=== PATIENT | male | born 1955 | race Caucasian/White ===

== ENCOUNTER 2016-06-06 09:38 | Emergency (ER) | payer OTHER ==
[2016-06-06] MEDS ORDERED: SODIUM CHLORIDE 0.9% 2,000 ML IV STA (09:41)
--- NOTE | 2016-06-06 09:47 | ED ---
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 He was seen in his family doctor today was noted have a heart rate between 141 45 bpm. EKG was done showing possible flutter. He was transported here by EMS. He was given a fluid challenge his heart rate did respond. His normal blood pressures around 100/60 per EMS his initial one was 102/62. He had come up somewhat after the fluid challenge. Patient denies any headache dizziness blurry vision he has had nausea no vomiting he feels generally rundown and weak. No focal weakness however. No known heart or lung disease. He states multiple family members including his son and a brother has similar symptoms. He's had no foreign travel no recent antibiotics. MD Complaint: irregular heart beat - Related Data Home Medications Medication Instructions Recorded Confirmed Aspirin 81 mg PO DAILY 06/06/16 06/06/16 Cholecalciferol [Vitamin D3] 2,000 unit PO DAILY 06/06/16 06/06/16 Multivitamin [Men's Multi-Vitamin] 1 tab PO DAILY 06/06/16 06/06/16 Olmesartan/Hydrochlorothiazide 1 tab PO DAILY 06/06/16 06/06/16 [Benicar Hct 40-12.5 mg Tablet] Previous Rx's Medication Instructions Recorded Oseltamivir [Tamiflu] 75 mg PO Q12HR #10 cap 06/06/16 Allergies Allergy/AdvReac Type Severity Reaction Status Date / Time No Known Allergies Allergy Verified 06/06/16 13:32 Review of Systems ROS Statement: Those systems with pertinent positive or pertinent negative responses have been documented in the HPI. ROS Other: All systems not noted in ROS Statement are negative. General Exam - General Exam Comments Initial Comments: This is a well-developed asthenic appearing male awake alert oriented 3 General appearance: alert, in no apparent distress Head exam: Present: atraumatic, normocephalic, normal inspection Eye exam: Present: normal appearance, PERRL, EOMI. Absent: scleral icterus, conjunctival injection, periorbital swelling ENT exam: Present: mucous membranes dry Neck exam: Present: normal inspection. Absent: tenderness, meningismus, lymphadenopathy Respiratory exam: Present: normal lung sounds bilaterally. Absent: respiratory distress, wheezes, rales, rhonchi, stridor Cardiovascular Exam: Present: tachycardia, irregular rhythm. Absent: systolic murmur, diastolic murmur, rubs, gallop, clicks GI/Abdominal exam: Present: soft, normal bowel sounds. Absent: distended, tenderness, guarding, rebound, rigid Extremities exam: Present: normal inspection, full ROM, normal capillary refill. Absent: tenderness, pedal edema, joint swelling, calf tenderness Back exam: Present: normal inspection Neurological exam: Present: alert, oriented X3, CN II-XII intact Psychiatric exam: Present: normal affect, normal mood Skin exam: Present: warm, dry, intact, normal color. Absent: rash Course Vital Signs 06/06/16 06/06/16 06/06/16 09:55 10:00 12:31 Temperature 99.8 F H Pulse Rate 132 H 138 H 60 Respiratory 18 18 18 Rate Blood Pressure 136/81 106/68 O2 Sat by Pulse 95 100 Oximetry - Reevaluation(s) Reevaluation #1: 06/06/16 12:39 The patient was reevaluated he is feeling much improved he did originally going to his doctor's office for evaluation of upper respiratory infection with been going on for about 4 days. He's had rhinorrhea nasal congestion slight cough. Flu swab is been ordered. Reevaluation #2: 06/06/16 14:18 The patient did respond to IV fluids and is feeling improved at this time. The initial EKG was suspicious for atrial flutter rate 131 QRS of 80 QT/QTC of 274/ 404. Repeat EKG showed a sinus rhythm of 64 TN interval 164 QRS of 80 QT/QTC of 380/400 Medical Decision Making - Medical Decision Making The patient did have a positive influenza test type a I did a long discussion with him and his family regarding his he'll be discharged on Tamiflu he will be given a note for work. The initial rhythm strip the patient came in with appeared to be consistent with PACs. This is since resolved. Also - Lab Data Result diagrams: 06/06/16 09:50 06/06/16 09:50 Lab Results 06/06/16 06/06/16 06/06/16 Range/Units 09:50 09:50 09:50 WBC 6.1 (3.8-10.6) k/uL RBC 4.65 (4.30-5.90) m/uL Hgb 14.7 (13.0-17.5) gm/dL Hct 42.3 (39.0-53.0) % MCV 90.9 (80.0-100.0) fL MCH 31.5 (25.0-35.0) pg MCHC 34.7 (31.0-37.0) g/dL RDW 12.8 (11.5-15.5) % Plt Count 124 L (150-450) k/uL Neutrophils % 80 % Lymphocytes % 11 % Monocytes % 6 % Eosinophils % 0 % Basophils % 0 % Neutrophils # 4.9 (1.3-7.7) k/uL Lymphocytes # 0.7 L (1.0-4.8) k/uL Monocytes # 0.4 (0-1.0) k/uL Eosinophils # 0.0 (0-0.7) k/uL Basophils # 0.0 (0-0.2) k/uL Sodium 142 (137-145) mmol/L Potassium 4.5 (3.5-5.1) mmol/L Chloride 107 (98-107) mmol/L Carbon Dioxide 25 (22-30) mmol/L Anion Gap 10 mmol/L BUN 18 (9-20) mg/dL Creatinine 0.81 (0.66-1.25) mg/dL Est GFR (MDRD) Af Amer >60 (>60 ml/min/1.73 sqM) Est GFR (MDRD) Non-Af >60 (>60 ml/min/1.73 sqM) Glucose 97 (74-99) mg/dL Calcium 9.1 (8.4-10.2) mg/dL Magnesium 2.2 (1.6-2.3) mg/dL Total Bilirubin 1.3 (0.2-1.3) mg/dL AST 32 (17-59) U/L ALT 38 (21-72) U/L Alkaline Phosphatase 68 (38-126) U/L Total Creatine Kinase 74 (55-170) U/L CK-MB (CK-2) <0.2 (0.0-2.4) ng/mL CK-MB (CK-2) Rel Index Troponin I <0.012 (0.000-0.034) ng/mL Total Protein 6.0 L (6.3-8.2) g/dL Albumin 3.4 L (3.5-5.0) g/dL Amylase 38 (30-110) U/L Lipase 58 (23-300) U/L Influenza Type A RNA (Not Detectd) Influenza Type B (PCR) (Not Detectd) 06/06/16 Range/Units 13:17 WBC (3.8-10.6) k/uL RBC (4.30-5.90) m/uL Hgb (13.0-17.5) gm/dL Hct (39.0-53.0) % MCV (80.0-100.0) fL MCH (25.0-35.0) pg MCHC (31.0-37.0) g/dL RDW (11.5-15.5) % Plt Count (150-450) k/uL Neutrophils % % Lymphocytes % % Monocytes % % Eosinophils % % Basophils % % Neutrophils # (1.3-7.7) k/uL Lymphocytes # (1.0-4.8) k/uL Monocytes # (0-1.0) k/uL Eosinophils # (0-0.7) k/uL Basophils # (0-0.2) k/uL Sodium (137-145) mmol/L Potassium (3.5-5.1) mmol/L Chloride (98-107) mmol/L Carbon Dioxide (22-30) mmol/L Anion Gap mmol/L BUN (9-20) mg/dL Creatinine (0.66-1.25) mg/dL Est GFR (MDRD) Af Amer (>60 ml/min/1.73 sqM) Est GFR (MDRD) Non-Af (>60 ml/min/1.73 sqM) Glucose (74-99) mg/dL Calcium (8.4-10.2) mg/dL Magnesium (1.6-2.3) mg/dL Total Bilirubin (0.2-1.3) mg/dL AST (17-59) U/L ALT (21-72) U/L Alkaline Phosphatase (38-126) U/L Total Creatine Kinase (55-170) U/L CK-MB (CK-2) (0.0-2.4) ng/mL CK-MB (CK-2) Rel Index Troponin I (0.000-0.034) ng/mL Total Protein (6.3-8.2) g/dL Albumin (3.5-5.0) g/dL Amylase (30-110) U/L Lipase (23-300) U/L Influenza Type A RNA Detected H (Not Detectd) Influenza Type B (PCR) Not Detected (Not Detectd) - Radiology Data Radiology results: report reviewed (Nonspecific x-rays), image reviewed Disposition Clinical Impression: Influenza A, Dehydration, Cardiac dysrhythmia, unspecified, Febrile illness, acute Disposition: HOME SELF-CARE Condition: Good Instructions: Palpitations (ED), Influenza (ED), Dehydration (ED), Fever in Adults (ED) Prescriptions: Oseltamivir [Tamiflu] 75 mg PO Q12HR #10 cap
[2016-06-06 10:00] VITALS: RESP 18
[2016-06-06 10:07] LABS: Basophils % (A) 0 %; CH 31.3; CHCM 34.6; Eosinophils % (A) 0 %; HCT 42.3 % (39.0-53.0); HGB 14.7 gm/dL (13.0-17.5); Luc # (Auto) 0.18; Luc % (Auto) 3; Lymphocytes # (A) 0.7 k/uL (1.0-4.8); Lymphocytes % (A) 11 %; MCH 31.5 pg (25.0-35.0); MCHC 34.7 g/dL (31.0-37.0); MCV 90.9 fL (80.0-100.0); Monocytes # (A) 0.4 k/uL (0-1.0); Monocytes % (A) 6 %; Neutrophils # (A) 4.9 k/uL (1.3-7.7); Neutrophils % (A) 80 %; RBC 4.65 m/uL (4.30-5.90); RDW 12.8 % (11.5-15.5); WBC 6.1 k/uL (3.8-10.6); WBC (Perox) 6.08
[2016-06-06 10:17] LABS: ALT 38 U/L (21-72); AST 32 U/L (17-59); Alkaline Phosphatase 68 U/L (38-126); Amylase 38 U/L (30-110); Anion Gap 10 mmol/L; Blood Urea Nitrogen 18 mg/dL (9-20); Calcium 9.1 mg/dL (8.4-10.2); Carbon Dioxide 25 mmol/L (22-30); Chloride 107 mmol/L (98-107); Glucose 97 mg/dL (74-99); Magnesium 2.2 mg/dL (1.6-2.3); Non-African American GFR(MDRD) >60 (>60 ml/min/1.73 sqM); Potassium 4.5 mmol/L (3.5-5.1); Sodium 142 mmol/L (137-145); Total Bilirubin 1.3 mg/dL (0.2-1.3)
--- NOTE | 2016-06-06 10:25 | XR ---
EXAMINATION TYPE: XR chest 2V DATE OF EXAM: 06/06/2016 10:16 AM COMPARISON: NONE TECHNIQUE: PA and lateral views submitted. HISTORY: Cough FINDINGS: The lungs are clear and there is no pneumothorax, pleural effusion, or focal pneumonia. Hyperinflat ion suggests COPD. Biapical pleural thickening noted. IMPRESSION: 1. No acute process. Correlate for COPD.
--- NOTE | 2016-06-06 10:27 | XR ---
EXAMINATION TYPE: XR KUB DATE OF EXAM: 06/06/2016 10:16 AM COMPARISON: NONE HISTORY: Abdominal pain and cough TECHNIQUE: One view abdominal series FINDINGS: The osseous structures are intact. The bowel gas pattern is nonspecific. Nonspecific calcifications in the pelvis likely vascular. Lung bases clear. Linear opaque density left upper abdomen may be vasc ular or related to previous procedure. Correlate clinically. IMPRESSION: 1. Nonspecific abdomen.
[2016-06-06 10:33] LABS: Creatine Kinase 74 U/L (55-170)
[2016-06-06 10:46] LABS: Creatine Kinase MB <0.2 ng/mL (0.0-2.4); Troponin I <0.012 ng/mL (0.000-0.034)
[2016-06-06] MEDS ORDERED: OSELTAMIVIR 75 MG CAP PO STA (14:13)
[2016-06-06 14:46] VITALS: BP 117/68; PULSE 64; TEMP 98.9
== END 2016-06-06 14:46 | disposition home or self-care (01) ==
LOC: EC 09:38
DX: J10.1 Influenza due to other identified influenza virus with other respiratory manifestations (principal); E86.0 Dehydration; I49.9 Cardiac arrhythmia, unspecified; Z79.82 Long term (current) use of aspirin; Z79.899 Other long term (current) drug therapy
CPT/HCPCS: 36415; 71020; 74000; 80053; 82150; 82550; 82553; 83690; 83735; 84484; 85025; 87502; 93005; 96360; 96361; 99285

== ENCOUNTER → 2016-07-03 | Outpatient (CLI) | payer OTHER ==
--- NOTE | 2016-07-04 09:41 | ECHOF ---
Referral Reason:I42.2 other hypertrophic MEASUREMENTS -------- HEIGHT: 182.9 cm WEIGHT: 68.0 kg BP: RVIDd: 2.8 cm (< 3.3) IVSd: 0.8 cm (0.6 - 1.1) LVIDd: 4.5 cm (3.9 - 5.3) LVPWd: 0.9 cm (0.6 - 1.1) IVSs: 1.5 cm LVIDs: 2.1 cm LVPWs: 1.2 cm Ao Diam: 3.1 cm (2.0 - 3.7) AV Cusp: 2.3 cm (1.5 - 2.6) LA Diam: 2.2 cm (2.7 - 3.8) MV EXCURSION: 18.612 mm (> 18.000) MV EF SLOPE: 61 mm/s (70 - 150) EPSS: 0.1 cm MV E Juan: 0.73 m/s MV DecT: 205 ms MV A Juan: 0.49 m/s MV E/A Ratio: 1.49 RAP: 15.00 mmHg RVSP: 35.35 mmHg FINDINGS -------- Sinus rhythm. This was a technically good study. Left ventricular wall thickness is normal. Overall left ventricular systolic function is normal with, an EF between 55 - 60 %. The right ventricle is normal in size. The left atrium is normal in size. The right atrium is normal in size. The aortic valve is trileaflet, and appears structurally normal. No aortic stenosis or regurgitation. There is trace mitral regurgitation. Mild tricuspid regurgitation present. The right ventricular systolic pressure, as measured by Doppler, is 35.35mmHg. Trace/mild (physiologic) pulmonic regurgitation. The aortic root size is normal. The inferior vena cava is mildly dilated. The pericardium is normal. CONCLUSIONS -------- 1. Sinus rhythm. 2. Mild tricuspid regurgitation present. 3. The right ventricular systolic pressure, as measured by Doppler, is 35.35mmHg. 4. Trace/mild (physiologic) pulmonic regurgitation. 5. The aortic root size is normal. 6. The inferior vena cava is mildly dilated. 7. The pericardium is normal. 8. This was a technically good study. 9. Left ventricular wall thickness is normal. 10. Overall left ventricular systolic function is normal with, an EF between 55 - 60 %. 11. The right ventricle is normal in size. 12. The left atrium is normal in size. 13. The right atrium is normal in size. 14. The aortic valve is trileaflet, and appears structurally normal. No aortic stenosis or regurgitation. 15. There is trace mitral regurgitation. ADVERTISING ASSISTANT MANAGER: Bethany Yusuf RDCS
== END | disposition home or self-care (01) ==
LOC: RADECHMAIN 12:55
PROVIDERS: ATTEND Family Medicine
DX: I07.1 Rheumatic tricuspid insufficiency (principal); I42.2 Other hypertrophic cardiomyopathy
CPT/HCPCS: 93306

== ENCOUNTER 2017-05-17 09:38 | Day surgery (SDC) | payer OTHER ==
[2017-05-13 15:16] VITALS: BMI 19.1
[~2017-05-17 09:38] MED LIST: LACTATED RINGERS 1,000 ML IV SCH
[2017-05-17 10:11] VITALS: RESP 16; TEMP 98.2
[2017-05-17] MEDS ORDERED: LIDOCAINE 1% 20 ML VIAL (10MG/ML) FOR IV START INTRADERMA ONE (10:11)
[2017-05-17] MEDS ORDERED: PROPOFOL 10 MG/ML 20 ML VIAL IV ONE (10:31)
--- NOTE | 2017-05-17 10:56 | P.PCN ---
Date of Procedure: 05/17/17 Procedure(s) Performed: Procedure: Total colonoscopy. Preoperative diagnosis: Screening for neoplasia, patient has family history of colon cancer. Postoperative diagnosis: Sigmoid diverticulosis with no evidence of acute diverticulitis, strictures, polyps or cancer. Preparation: HalfLytely prep. Sedation: Was provided by anesthesia. Brief clinical history: The patient is a 61-year-old male who is scheduled for this evaluation for screening for neoplasia because of family history of colon cancer in his father. His last colonoscopy was 5 years ago. The patient has no abdominal complaints, bleeding or anemia. Procedure: With the patient on his left lateral decubitus position and after informed consent and adequate sedation, the perianal area was inspected and it did not show any fissures or fistulas. There were no masses felt on digital rectal examination. The Olympus CFQ 160L video colonoscope was then inserted in the rectum in the usual fashion and advanced to the cecum. The mucosa appeared healthy. No polyps or tumors were seen. Few diverticular orifices were seen scattered in the sigmoid but there was no evidence of acute diverticulitis or strictures. I retroflexed the endoscope in the rectum before the endoscope was withdrawn. The patient tolerated the procedure well. Plan: The patient was reassured. In light of his history, I am recommending repeat exam in 5 years. He will follow up with you as planned.
[2017-05-17 11:11] VITALS: BP 122/64; PULSE 43
== END 2017-05-17 11:42 | disposition home or self-care (01) ==
LOC: ORWHC2ENDO 09:38
DX: Z12.11 Encounter for screening for malignant neoplasm of colon (principal); K57.30 Diverticulosis of large intestine without perforation or abscess without bleeding; Z80.0 Family history of malignant neoplasm of digestive organs; I10 Essential (primary) hypertension; Z79.82 Long term (current) use of aspirin; Z79.899 Other long term (current) drug therapy
CPT/HCPCS: J2704; G0105

== ENCOUNTER → 2019-10-12 | Outpatient (CLI) | payer OTHER | END | disposition home or self-care (01) | LOC: LABWHC1 09:26 | PROVIDERS: ATTEND Physician Assistant | DX: Z20.828 Contact with and (suspected) exposure to other viral communicable diseases (principal) | CPT/HCPCS: 36415; 86769 ==

== ENCOUNTER → 2021-05-30 | Outpatient (CLI) | payer OTHER ==
--- NOTE | 2021-06-01 13:39 | ECHOF ---
Referral Reason:R01.1 Murmur MEASUREMENTS -------- HEIGHT: 180.3 cm WEIGHT: 65.8 kg BP: RVIDd: 2.3 cm (< 3.3) IVSd: 1.3 cm (0.6 - 1.1) LVIDd: 3.2 cm (3.9 - 5.3) LVPWd: 1.3 cm (0.6 - 1.1) IVSs: 1.7 cm LVIDs: 2.0 cm LVPWs: 1.7 cm Ao Diam: 3.2 cm (2.0 - 3.7) AV Cusp: 2.2 cm (1.5 - 2.6) LA Diam: 2.8 cm (2.7 - 3.8) MV EXCURSION: 17.007 mm (> 18.000) MV EF SLOPE: 63 mm/s (70 - 150) EPSS: 0.1 cm MV E Juan: 0.76 m/s MV DecT: 154 ms MV A Juan: 0.58 m/s MV E/A Ratio: 1.31 RAP: 15.00 mmHg RVSP: 35.94 mmHg FINDINGS -------- This was a technically good study. The left ventricular size is normal. There is mild concentric left ventricular hypertrophy. Overa ll left ventricular systolic function is normal with, an EF between 55 - 60 %. The right ventricle is normal in size. The left atrial size is normal. The right atrial size is normal. The aortic valve is trileaflet and appears structurally normal. The mitral valve is normal. There is trace mitral regurgitation. The tricuspid valve appears structurally normal. Mild tricuspid regurgitation present. Right vent ricular systolic pressure is normal at < 35 mmHg. Trace/mild (physiologic) pulmonic regurgitation. The aortic root size is normal. The inferior vena cava is mildly dilated. There is no pericardial effusion. CONCLUSIONS -------- 1. The left ventricular size is normal. 2. There is mild concentric left ventricular hypertrophy. 3. Overall left ventricular systolic function is normal with, an EF between 55 - 60 %. 4. There is trace mitral regurgitation. 5. Mild tricuspid regurgitation present. 6. Trace/mild (physiologic) pulmonic regurgitation. 7. The inferior vena cava is mildly dilated. 8. There is no pericardial effusion. HEALTH SAFETY INSTRUCTOR: Bethany Yusuf RDCS
== END | disposition home or self-care (01) ==
LOC: RADECHMAIN 15:47
PROVIDERS: ATTEND Family Medicine
DX: I51.7 Cardiomegaly (principal); I34.0 Nonrheumatic mitral (valve) insufficiency; R01.1 Cardiac murmur, unspecified
CPT/HCPCS: 93306

== ENCOUNTER → 2022-02-27 | Outpatient (CLI) | payer OTHER ==
--- NOTE | 2022-03-02 08:03 | MR ---
EXAMINATION TYPE: MR shoulder LT wo con DATE OF EXAM: 02/27/2022 COMPARISON: None. HISTORY: L shoulder pain for one year. TECHNIQUE: Multiplanar, multisequence imaging of the left shoulder is performed without contrast. FINDINGS: Rotator Cuff: Focal tear distal supraspinatus tendon and articular surface measuring 7 mm AP diameter sagittal image 5 x 5 mm transversely coronal image 9. This involves the anterior one half fibers. In creased signal throughout the infraspinatus tendon without retracted tear. Rotator cuff muscle bulk i s maintained. Subscapularis tendon intact. Acromioclavicular Joint: Moderate to severe narrowing with moderate spurring and capsular hypertrophy . Type III acromion with inferior spur. Glenohumeral Joint: Small joint effusion with focal narrowing. There is focal cartilaginous loss exte nding into bone in the central glenoid coronal image 10 for reference. Labrum: The labrum appears grossly intact given limitation of non-arthrogram study. Biceps Tendon: The long head of biceps is in normal location within bicipital groove. Bone marrow signal: Subchondral cystic change throughout the lateral portion of the superior humeral head. Overall heterogeneity. Subchondral cystic change in the acromion abutting the AC joint. Other: No additional significant abnormality is appreciated. IMPRESSION: 1. Full-thickness articular surface tear of anterior one half of the supraspinatus tendon. 2. Type III acromion with suggestion of underlying impingement. 3. Degenerative changes as detailed above with focal osteochondral injury involving the central gleno id.
== END | disposition home or self-care (01) ==
LOC: RADMRIMAIN 06:36
PROVIDERS: ATTEND Orthopaedic Surgery
DX: S49.82XA Other specified injuries of left shoulder and upper arm, initial encounter (principal); M19.012 Primary osteoarthritis, left shoulder; M75.111 Incomplete rotator cuff tear or rupture of right shoulder, not specified as traumatic; M25.012 Hemarthrosis, left shoulder

== ENCOUNTER → 2022-05-01 | Outpatient (CLI) | payer OTHER ==
--- NOTE | 2022-05-01 16:31 | BD ---
EXAMINATION TYPE: Axial Bone Density DATE OF EXAM: 05/01/2022 COMPARISON: NONE CLINICAL HISTORY: 66 years year old Male. ICD-10 CODE: Z13.820 ENCOUNTER FOR SCREENING FOR OSTEOPORO SIS Height: 72.5 IN Weight: 133 LBS FRAX RISK QUESTIONS: History of Fracture in Adulthood: LT FINGER AGE 64 RISK FACTORS HISTORY OF: History of Wrist Fracture: YES LEFT WRIST Active: YES MEDICATIONS: Additional Medications: MULTI VIT, LOW DOSE ASPIRIN, BLOOD PRESSURE MEDS EXAM MEASUREMENTS: Bone mineral densitometry was performed using the [employer] System. Bone mineral density as measured about the Lumbar spine is: ----- L1-L4(G/cm2): 1.161 T Score Values are as follows: ----- L1: -1.5 ----- L2: -0.1 ----- L3: 0.4 ----- L4: 0.2 ----- L1-L4: -0.2 Bone mineral density BASELINE Bone mineral density about the R hip (g/cm2): 0.822 Bone mineral density about the L hip (g/cm2): 0.800 T Score values are as follows: -----R Neck: -1.6 -----L Neck: -1.7 -----R Total: -1.2 -----L Total: -1.2 Bone mineral density BASELINE FRAX%s: The graph provided illustrates a 9.9 chance for a major osteoporotic fx and a 2.3 chance for the hips probability for fx in 10 years time. IMPRESSION: Osteopenia (T Score between -2.5 and -1). There is slightly increased risk of fracture and the patient may be considered for treatment. Re-Screen 2-5 years. NOTE: T-SCORE=SD OF THE YOUNG ADULT MEAN.
== END | disposition home or self-care (01) ==
LOC: RADBDWWP 15:27
PROVIDERS: ATTEND Family Medicine
DX: Z13.820 Encounter for screening for osteoporosis (principal); M85.89 Other specified disorders of bone density and structure, multiple sites
CPT/HCPCS: 77080

== ENCOUNTER 2022-06-12 07:31 | Day surgery (SDC) | payer OTHER ==
[~2022-06-12 07:31] MED LIST changes: -LACTATED RINGERS 1,000 ML IV SCH; +LIDOCAINE 1% (10MG/ML) FOR IV START INTRADERMA PRN; +ONDANSETRON 4 MG/2 ML VIAL IVP PRN
[2022-06-12] MEDS: LACTATED RINGERS 1,000 ML IV SCH ×2 (07:56→08:34)
[2022-06-12 07:57] VITALS: TEMP 97.8
[2022-06-12] MEDS ORDERED: PROPOFOL 10 MG/ML 20 ML VIAL IV ONE (08:41)
--- NOTE | 2022-06-12 08:56 | P.PCN ---
Date of Procedure: 06/12/22 Procedure(s) Performed: BRIEF HISTORY: Patient is a 66-year-old pleasant white male scheduled for an elective colonoscopy as a part of screening for colon cancer and family history of colon cancer. His dad was diagnosed with colon cancer at age 60. PROCEDURE PERFORMED: Colonoscopy. PREOPERATIVE DIAGNOSIS: Screening for colon cancer and family history of colon cancer. IV sedation per Anesthesia. PROCEDURE: After informed consent was obtained, the patient, was brought into the endoscopy unit. IV sedation was administered by Anesthesia under continuous monitoring. Digital rectal examination was normal. Initially the Olympus CF-160 flexible video colonoscope was then inserted in the rectum, gradually advanced into the cecum without any difficulty. Careful examination was performed as the scope was gradually being withdrawn. Ileocecal valve and the appendiceal orifice were visualized and appeared normal. Prep was excellent. Mucosa of the cecum, ascending colon, transverse colon, descending colon, sigmoid colon, and rectum appeared normal. Retroflexion was performed in the rectum and small internal hemorrhoids were seen. Scattered sigmoid diverticulosis. The patient tolerated the procedure well. IMPRESSION: Normal-appearing colon from rectum to cecum with no evidence of colorectal neoplasia . Scattered sigmoid diverticulosis. RECOMMENDATIONS: Findings of this examination were discussed with the patient at this family. He was advised to have a repeat screening colonoscopy in 5 years because of the family history of colon cancer.
[2022-06-12 09:24] VITALS: BP 120/73; PULSE 52; RESP 18
== END 2022-06-12 09:30 ==
LOC: ORWHC2ENDO 07:31
PROVIDERS: ATTEND Internal Medicine Gastroenterology
DX: Z12.11 Encounter for screening for malignant neoplasm of colon (principal); K64.8 Other hemorrhoids; K57.30 Diverticulosis of large intestine without perforation or abscess without bleeding; Z80.0 Family history of malignant neoplasm of digestive organs; I10 Essential (primary) hypertension; Z79.82 Long term (current) use of aspirin; Z79.899 Other long term (current) drug therapy; Z98.890 Other specified postprocedural states
CPT/HCPCS: 45378; J2704